=== PATIENT | female | born 1990 | race Caucasian/White ===

== ENCOUNTER 2018-08-28 19:41 | Emergency (ER) | payer MEDICAID ==
[~2018-08-28] VITALS: Ht 162.6 cm; Wt 95.7 kg
[~2018-08-28 19:41] MED LIST: CARI350T PO
[2018-08-28 20:56] VITALS: BP 145/84
== END 2018-08-28 20:57 | disposition home or self-care (01) ==
LOC: ER 19:42
DX: S06.0X0A Concussion without loss of consciousness, initial encounter (principal); R11.2 Nausea with vomiting, unspecified; Z79.899 Other long term (current) drug therapy; Y04.8XXA Assault by other bodily force, initial encounter; Y93.89 Activity, other specified; Y92.89 Other specified places as the place of occurrence of the external cause; Y99.8 Other external cause status
CPT/HCPCS: 99281

== ENCOUNTER 2020-06-24 15:59 | Emergency (ER) | payer SELFPAY ==
[~2020-06-24] VITALS: Ht 165.1 cm; Wt 130.0 kg
[2020-06-24 16:02] VITALS: BP 132/78
[2020-06-24] MEDS ORDERED: CYCL-1 PO (16:58)
== END 2020-06-24 17:49 | disposition home or self-care (01) ==
LOC: ER 15:59
DX: M54.9 Dorsalgia, unspecified (principal); M79.662 Pain in left lower leg; M79.661 Pain in right lower leg; V87.7XXA Person injured in collision between other specified motor vehicles (traffic), initial encounter; Y93.89 Activity, other specified; Y92.89 Other specified places as the place of occurrence of the external cause; Y99.8 Other external cause status
CPT/HCPCS: 99283